=== PATIENT | male | born 1995 | race Caucasian/White ===

== ENCOUNTER 2023-06-29 12:28 | Emergency (ER) | payer OTHER, SELFPAY ==
--- NOTE | ~2023-06-29 | US_ITS ---
EXAMINATION: US ABDOMEN LIMITED CLINICAL INFORMATION: Abdominal pain, nausea/vomiting, elevated LFT. COMPARISON: None available. TECHNIQUE: Real-time imaging of the right upper quadrant abdominal viscera. FINDINGS: PANCREAS: The pancreatic head and body are normal in appearance. The tail is obscured by overlying bowel gas. LIVER: Enlarged measuring 18 cm with increased parenchymal echogenicity. No focal lesion. No intrahepatic biliary ductal dilatation. GALLBLADDER: Normal. The gallbladder is physiologically distended without evidence of stones, sludge, polyps, wall thickening or pericholecystic fluid. COMMON BILE DUCT: Normal in caliber measuring 0.3 cm in diameter. RIGHT KIDNEY: Normal. No hydronephrosis. No renal calculi or focal parenchymal lesions. The kidney measures 13 cm in maximum dimension. FREE FLUID: None. US/US abdomen limited IMPRESSION: 1. Hepatomegaly with increased parenchymal echogenicity suggesting hepatic steatosis. 2. The gallbladder is normal in appearance without evidence of cholelithiasis or acute cholecystitis.
--- NOTE | 2023-06-29 12:56 | ED_ITS ---
HPI - General Adult General Chief complaint: Nausea/Vomiting/Diarrhea Stated complaint: Dizzy Nausea High Blood Pressure Time Seen by Provider: 06/29/23 16:03 Source: patient Mode of arrival: ambulatory Limitations: no limitations History of Present Illness HPI narrative: Patient is a 28-year-old male who presents emergency department for evaluation of nausea vomiting dizziness and abdominal pain. He reports 4 days with epigastric pain, nausea throughout the day, and vomiting. The pain is worse in the morning and vomiting only occurs in the morning. In the evening he is able to tolerate eating and drinking without vomiting. His pain is also notably worse while supine. He reports some history of acid reflux in the past but does not take any medications for this. Denies fevers, chills, chest pain, shortness of breath, difficulty breathing, hematemesis, lower abdominal pain, diarrhea, constipation, melena, hematochezia, urinary symptoms. He denies any known sick contacts. He endorses daily marijuana usage otherwise denies recreational drug usage Related Data Previous Rx's Medication Instructions Recorded famotidine 40 mg tablet (Pepcid) 40 mg PO DAILY #14 tabs 06/29/23 Allergies Allergy/AdvReac Type Severity Reaction Status Date / Time No Known Allergies Allergy Verified 06/29/23 12:59 [No Known Allergies*] Review of Systems 2 Review of Systems: Yes all other systems are reviewed and are negative PMFSH Past Medical History Attestation statement: The following information was validated with the patient. Source: old records reviewed Social History Social History Alcohol intake: never Smoked in Last 30 Days: No Use of substances other than those prescribed or required for medical reasons: Yes Substance Use Type: Marijuana Advance Directives: No Advance Directives Information Provided: No Physical Exam ED Vital Signs: Vital Signs - 24 hr 06/29/23 12:57 06/29/23 16:05 Temperature 97.7 F 97.8 F Pulse Rate 68 68 Respiratory Rate 18 15 Blood Pressure 144/91 H 144/88 H Pulse Oximetry 98 98 Oxygen Delivery Method Room Air Room Air BMI result Body Mass Index 39.0 Appearance: Alert.?Oriented to person, place and time. No acute distress.?Normal affect. ENT: Pharynx normal.?? Neck: Normal inspection.? Neck supple.?? CVS: Heart sounds normal. Normal heart rate and rhythm.? Pulses normal.?? Respiratory: No respiratory distress.? Lung sounds clear to auscultation bilaterally?? Abdomen: Soft with epigastric tenderness upon palpation, no right or left upper quadrant tenderness upon palpation. Negative Mosley sign. No rigidity. No guarding. Lower abdominal examination is benign. Normoactive bowel sounds. No pulsatile mass.?? Skin: Skin warm and dry.? Normal skin color.? Extremities: No lower extremity edema.? Neuro: Moves all extremities spontaneously. Sensation intact bilaterally. Ambulates with normal steady gait. Course Course Course Narrative: RME:?28yo M w/no sig PMHx c/o nausea, multiple episodes of emesis, abdominal discomfort and dizziness x few days. +decreased PO intake. denies sick contacts. endorses daily marijuana use. Mildly HTNsive, Abd soft nontender EKG, labs, UA, Viral testing ordered Full HPI, ROS and PE to be performed by the primary ED provider. Reevaluation(s) Reevaluation #1: Ultrasound suggestive of hepatic steatosis. No evidence of cholelithiasis or acute cholecystitis. After medicated with GI regimen symptoms with significant improvement. He is tolerating oral intake. Will discharge patient home with course of treatment with antacid outpatient follow-up with primary care provider. Time: 18:16 Medications Administered Discontinued Medications Generic Name Dose Route Start Last Admin Trade Name Freq PRN Reason Stop Dose Admin Famotidine 20 mg 06/29/23 16:45 06/29/23 17:59 Famotidine 20 Mg Tablet PO 06/29/23 16:46 20 mg ONCE ONE Administration Lidocaine/Diphenhydr/Alum/Mg/Simeth 10 ml 06/29/23 16:45 06/29/23 17:59 Mag&Al/Sim/Diphenhyd/Lidocaine 10 Ml Oral.Susp PO 06/29/23 16:46 10 ml ONCE ONE Administration Protocol Ondansetron HCl 4 mg 06/29/23 16:33 06/29/23 17:59 Ondansetron Odt 4 Mg Tab.Rapdis TRANSLINGU 06/29/23 16:34 4 mg ONCE ONE Administration Medical Decision Making Medical Decision Making [facility] Narrative: Patient is a 28-year-old male with no reported past medical history presenting to emergency department for evaluation of nausea vomiting and abdominal pain as per HPI. At the time my examination he is overall well-appearing. He is afebrile without tachycardia. Is without chest pain or shortness of breath, symptoms unlikely to be related to ACS/PE; no risk factors, unlikely to be pneumonia as he is without any recent sick contacts or URI symptoms. Reviewed labs obtained there is no leukocytosis or anemia. BMP overall unremarkable. Mildly elevated AST/ALT based on ratio suspect likely fatty liver. Concern for gastritis, GERD, less likely PUD. Plan to obtain ultrasound for further evaluation of hepatic/biliary etiology, and will trial Zofran, famotidine, and GI cocktail for symptoms at this time. Differential Diagnosis Differential Diagnoses: The differential diagnosis associated with the presentation includes (As noted above) Admission/Observation Consideration of admission/observation: Escalation of care including admission/observation considered (Considered admission for abdominal pain, see course narrative for further detail) Lab Data MDM Lab Attestation statement: I reviewed the patient's lab results. (As per narrative above) 06/29/23 13:48 06/29/23 13:48 Labs: Lab Results 06/29/23 06/29/23 Range/Units 13:48 16:20 WBC 6.0 (4.8-10.8) X10*3/uL RBC 4.86 (4.60-5.80) X10*6/uL Hgb 14.6 (14.0-18.0) g/dl Hct 42.7 (42.0-52.0) % MCV 87.9 (80.0-98.0) fL MCH 30.0 (27.0-33.0) pg MCHC 34.2 (31.0-36.0) g/dl RDW 13.0 (11.0-16.0) % Plt Count 207 (160-400) X10*3/uL MPV 9.2 L (9.4-12.4) fL Immature Gran % (Auto) 2.5 H (0.0-0.4) % Neut % (Auto) 57.5 (45-73) % Lymph % (Auto) 28.5 (20-40) % [place] % (Auto) 8.2 (2-11) % Eos % (Auto) 2.0 (0-4) % Baso % (Auto) 1.3 (0-2) % Lymph # (Auto) 1.7 (1.2-4.9) X10*3/uL [place] # (Auto) 0.5 (0.1-1.2) X10*3/uL Eos # (Auto) 0.1 (0.0-0.4) X10*3/uL Baso # (Auto) 0.1 (0.0-0.2) X10*3/uL Abs Immat Gran (auto) 0.15 H (0.00-0.03) X10*3/uL Absolute Neuts (auto) 3.4 (2.0-8.3) x10*3/uL Absolute Nucleated RBC 0.000 (0.0-0.012) X10*3/uL Nucleated RBC % (auto) 0.0 (0.0-0.2) /100WBC Sodium 142 (135-145) mmol/L Potassium 4.3 (3.3-5.1) mmol/L Chloride 106 (96-108) mmol/L Carbon Dioxide 29 (22-29) mmol/L Anion Gap 11 L (12-20) BUN 10 (9-16) mg/dL Creatinine 0.83 (0.5-1.4) mg/dL Estim Creat Clear Calc 176.6 Estimated GFR > 60 Random Glucose 84 (60-115) mg/dL Calcium 9.5 (8.4-10.2) mg/dL Magnesium 2.0 (1.6-2.6) mg/dL Total Bilirubin 0.4 (0.0-1.0) mg/dL AST 48 H (5-37) U/L ALT 108 H (0-40) U/L Alkaline Phosphatase 61 (39-117) U/L Total Protein 7.0 (6.5-8.0) g/dL Albumin 4.4 (3.5-5.0) g/dL Lipase 19 (8-78) U/L Urine Color Yellow Urine Appearance Clear Urine pH 6.5 (5.0-9.0) Ur Specific [place] 1.025 (1.005-1.025) Urine Protein Negative (Neg-Trace) mg/dL Urine Glucose (UA) Negative (Negative) mg/dL Urine Ketones Negative (Negative) mg/dL Urine Blood Negative (Negative) Urine Nitrite Negative (Negative) Ur Leukocyte Esterase Trace H (Negative) Urine RBC 0-2 (0-2) /HPF Urine WBC 0-5 (0-5) /HPF Ur Squamous Epith Cells 0-2 (0-2) /HPF Urine Bacteria None Seen (None Seen) Hyaline Casts 0-2 (0-2) /LPF Urine Opiates Screen Not Detected (Not Detect) Urine Fentanyl Screen Not Detected (Not Detect) Ur Barbiturates Screen Not Detected (Not Detect) Ur Phencyclidine Scrn Not Detected (Not Detect) Ur Amphetamines Screen Not Detected (Not Detect) U Benzodiazepines Scrn Not Detected (Not Detect) Urine Cocaine Screen Not Detected (Not Detect) U Marijuana (THC) Screen POSITIVE H (Not Detect) COVID-19 (DORIS) Negative (Negative) COVID-19 Clin Com See Note Independent Interpretation I performed an independent interpretation of an: Ultrasound (I personally interpreted ultrasound and agree with radiologist impression.) Radiology Impression Discussion of test interpretation with radiology: I have reviewed the radiologist's reading. Radiologist Impression: US/US abdomen limited IMPRESSION: 1. Hepatomegaly with increased parenchymal echogenicity suggesting hepatic steatosis. 2. The gallbladder is normal in appearance without evidence of cholelithiasis or acute cholecystitis. Independent Historian Clinical information obtained from an independent historian. History obtained from or confirmed by: Spouse (Present at bedside who confirms history) Tests considered The following testing was considered but not selected: Considered CT of the abdomen and pelvis, low suspicion for acute abdomen, CT imaging deferred. Discharge Plan Discharge Clinical Impression: Gastritis, Hepatic steatosis Patient Disposition: Home, Self-Care Instructions: Gastritis (ED), Liver Disease Diet (DC), Gastroesophageal Reflux Disease (ED) Additional Instructions: Avoid triggers such as fatty foods, spicy foods, tomatoes, onions, coffee, tea, chocolate, and alcohol. Remaining upright after meals for 1-2 hours. Avoid eating at least 3 hours before bedtime. Try sleeping on an incline if possible. Take famotidine daily as prescribed. As discussed, your blood markers for liver function were slightly elevated in the ultrasound indicates that you have what is called fatty liver. Please make your primary care prior wider aware of this so that they may follow-up appropriately. You may return back to emergency department any new or worsening symptoms or concerns. Prescriptions: New famotidine [Pepcid] 40 mg tablet 40 mg PO DAILY Qty: 14 0RF
[2023-06-29 12:57] VITALS: BP 144/91; PULSE 68; RESP 18; TEMP 36.5; O2SAT 98; BMI 39.0
--- NOTE | 2023-06-29 12:58 | ECG_ITS ---
Test Reason : LIGHTHEADED Blood Pressure : / mmHG Vent. Rate : 063 BPM Atrial Rate : 063 BPM P-R Int : 152 ms QRS Dur : 076 ms QT Int : 364 ms P-R-T Axes : 016 006 015 degrees QTc Int : 372 ms Normal sinus rhythm Normal ECG No previous ECGs available Referred By: Candy Diaz Electronically Signed By:ISRAEL MANE
[2023-06-29 13:52] LABS: MANUAL DIFF FLAG NO
[2023-06-29 14:05] LABS: Basophils Absolute Auto 0.1 X10*3/uL (0.0-0.2); Basophils Percent Auto 1.3 % (0-2); Eosinophils Absolute Auto 0.1 X10*3/uL (0.0-0.4); Hematocrit 42.7 % (42.0-52.0); Hemoglobin 14.6 g/dl (14.0-18.0); Imm Gran Abs Auto 0.15 X10*3/uL (0.00-0.03); Imm Gran Pct Auto 2.5 % (0.0-0.4); Lymphocytes Absolute Auto 1.7 X10*3/uL (1.2-4.9); Lymphocytes Percent Auto 28.5 % (20-40); Mean Corpuscular HGB Conc 34.2 g/dl (31.0-36.0); Mean Corpuscular Volume 87.9 fL (80.0-98.0); Mean Platelet Volume 9.2 fL (9.4-12.4); Monocytes Absolute Auto 0.5 X10*3/uL (0.1-1.2); Monocytes Percent Auto 8.2 % (2-11); Neutrophils Absolute Auto 3.4 x10*3/uL (2.0-8.3); Neutrophils Percent Auto 57.5 % (45-73); Platelet Count 207 X10*3/uL (160-400); Red Blood Count 4.86 X10*6/uL (4.60-5.80)
[2023-06-29 14:10] LABS: COVID-19 Test Negative (Negative); IDNOW Serial# 9DB6401D
[2023-06-29 14:13] LABS: Alanine Aminotransferase 108 U/L (0-40); Albumin Level 4.4 g/dL (3.5-5.0); Alkaline Phosphatase 61 U/L (39-117); Anion Gap 11 (12-20); Aspartate Amino Transferase 48 U/L (5-37); Bilirubin Total 0.4 mg/dL (0.0-1.0); Blood Urea Nitrogen 10 mg/dL (9-16); Calcium 9.5 mg/dL (8.4-10.2); Carbon Dioxide 29 mmol/L (22-29); Chloride 106 mmol/L (96-108); Creatinine Clr Calc Pharmacy 176.6; Estimated Glomerular Filt Rate > 60; Glucose Random 84 mg/dL (60-115); Lipase 19 U/L (8-78); Potassium 4.3 mmol/L (3.3-5.1); Sodium 142 mmol/L (135-145)
[2023-06-29 16:05] VITALS: BP 144/88; PULSE 68; RESP 15; TEMP 36.6; O2SAT 98
[2023-06-29 16:29] LABS: Appearance Urine Clear; Color Urine Yellow; Glucose Urine UA Negative (Negative); Leukocyte Esterase Urine Trace (Negative); Nitrite Urine Negative (Negative); PH 6.5 (5.0-9.0); Specific Gravity - Urine 1.025 (1.005-1.025); UMIC TRIGGER UACC YES; Urine Blood Negative (Negative); Urine Ketones Negative (Negative); Urine Protein Negative (Neg-Trace)
[2023-06-29 16:31] LABS: Bacteria Urine None Seen (None Seen); Hyaline Casts Urine 0-2 /LPF (0-2); RBC Urine 0-2 /HPF (0-2); Squamous Epithelial Cell Urine 0-2 /HPF (0-2); WBC Urine 0-5 /HPF (0-5)
[2023-06-29 16:35] LABS: Amphetamine Screen Urine Not Detected (Not Detect); Barbiturates, Urine Not Detected (Not Detect); Benzodiazepines Screen Urine Not Detected (Not Detect); Cannabinoid Screen Urine POSITIVE (Not Detect); Cocaine Screen Urine Not Detected (Not Detect); Fentanyl, urine Not Detected (Not Detect); Opiate Screen Urine Not Detected (Not Detect); Phencyclidine Screen Urine Not Detected (Not Detect)
[2023-06-29] MEDS: Mag&Al/Sim/Diphenhyd/Lidocaine 10 ML ORAL.SUSP PO (17:59)
[2023-06-29] MEDS: Ondansetron ODT 4 MG TAB.RAPDIS TRANSLINGU (17:59)
[2023-06-29] MEDS: Famotidine 20 MG TABLET PO (17:59)
== END 2023-06-29 18:28 | disposition home or self-care (01) ==
PROVIDERS: Physician Assistant Medical; Emergency Provider Emergency Medicine; PCP Internal Medicine
DX: K29.70 Gastritis, unspecified, without bleeding (principal); K76.0 Fatty (change of) liver, not elsewhere classified; F12.90 Cannabis use, unspecified, uncomplicated; Z20.822 Contact with and (suspected) exposure to COVID-19
CPT/HCPCS: 76705; 80053; 80307; 81001; 83690; 83735; 85025; 87635; 93005; 99284; 99285